=== PATIENT | female | born 1950 | race Caucasian/White ===

== ENCOUNTER 2017-01-24 11:13 | Emergency (ER) | payer BC ==
[~2017-01-24] VITALS: Ht 167.6 cm; Wt 70.2 kg
[2017-01-24 14:25] VITALS: BP 125/75
== END 2017-01-24 14:26 | disposition home or self-care (01) ==
LOC: EME 11:13
DX: S09.8XXA Other specified injuries of head, initial encounter (principal); W19.XXXA Unspecified fall, initial encounter; Y93.A5 Activity, obstacle course
CPT/HCPCS: 70450; 72125; 99281; 99284